=== PATIENT | male | born 1995 | race Caucasian/White ===

== ENCOUNTER 2017-02-27 22:01 | Emergency (ER) | payer OTHER ==
[~2017-02-27] VITALS: Ht 182.9 cm; Wt 77.0 kg
[2017-02-27 22:02] VITALS: BP 127/75
[2017-02-27] MEDS ORDERED: CYCL10TA PO (22:57)
[2017-02-27] MEDS ORDERED: IBUP-1022 PO (22:57)
[2017-02-27] MEDS ORDERED: CYCLOBENZAPRINE 10 MG TAB PO ONE (23:00)
[2017-02-27] MEDS ORDERED: IBUPROFEN 600 MG TAB PO ONE (23:00)
== END 2017-02-27 23:51 | disposition home or self-care (01) ==
LOC: M ED 22:01
DX: S39.012A Strain of muscle, fascia and tendon of lower back, initial encounter (principal); X50.0XXA Overexertion from strenuous movement or load, initial encounter; Y92.9 Unspecified place or not applicable; Y93.89 Activity, other specified; Y99.1 Military activity; F17.200 Nicotine dependence, unspecified, uncomplicated